=== PATIENT | male | born 1965 | race Two or more races ===

== ENCOUNTER 2025-02-08 06:29 | Outpatient (CLI) | payer OTHER ==
[2025-02-08 07:14] LABS: URINE APPEARANCE Clear; URINE BILIRRUBIN Negative (NEGATIVE); URINE BLOOD Negative; URINE COLOR Yellow; URINE GLUCOSE Negative (NEGATIVE); URINE KETONE Negative (NEGATIVE); URINE LEUKOCYTE Negative; URINE NITRATE Negative; URINE PROTEIN Negative (NEGATIVE); URINE UROBILINOGEN 0.2 E.U./dl
[2025-02-08 07:16] LABS: URINE WBC 3.4 uL (0.0-23.2)
[2025-02-08 07:20] LABS: URINE EPITHELIAL CELLS 1.2 uL (0.0-38.8)
[2025-02-08 07:32] LABS: HEMATOCRIT 39.2 % (39.0-48.0); HEMOGLOBIN 12.7 g/dL (13-16.00); MEAN CELL VOLUME 82.7 fL (80.0-100.00); MEAN CORPUSCULAR HEMOGLOBIN 26.9 pg (27.00-32.0); MEAN CORPUSCULAR HGB CONC 32.5 g/dl (32.0-36.0); PLATELET COUNT 195 K/uL (150-450); RED BLOOD COUNT 4.74 M/uL (4.00-6.00)
[2025-02-08 07:59] LABS: ALBUMIN 3.6 gm/dL (3.4-5.0); BILIRUBIN TOTAL 0.36 mg/dL (0.3-1.2); CALCIUM 8.6 mg/dL (8.5-10.1); CHOL HDL RATIO 2.8 (0-5.0); CREATININE SERUM 1.24 mg/dL (0.70-1.30); GFR 59.46; GLOBULINA 4.1 G/DL (2.4-3.5); POTASSIUM 4.39 mEq/L (3.5-5.1); PROSTATIC SPECIFIC ANTIGEN 0.795 NG/ML (0.010-4.00); TOTAL PROTEIN 7.7 gm/dL (6.4-8.2); TSH 2.19 uIU/mL (0.358-3.74)
[2025-02-08 13:31] LABS: RF NEGATIVE (NEGATIVE)
[2025-02-08 13:34] LABS: RAPID PLASMA REAGIN NONREACTIVE BY RPR (NONREACTIVE)
[2025-02-09 09:05] LABS: hav igm Negative (Negative); hcv Non Reactive (Non Reactive); hep b c Negative (Negative); hep b s ag Negative (Negative)
== END 2025-02-08 06:43 | disposition home or self-care (01) ==
LOC: LAB 06:29
PROVIDERS: ATTEND General Practice
DX: Z11.3 Encounter for screening for infections with a predominantly sexual mode of transmission (principal); Z12.11 Encounter for screening for malignant neoplasm of colon; Z13.0 Encounter for screening for diseases of the blood and blood-forming organs and certain disorders involving the immune mechanism; Z13.1 Encounter for screening for diabetes mellitus; Z13.220 Encounter for screening for lipoid disorders; Z13.29 Encounter for screening for other suspected endocrine disorder; Z12.5 Encounter for screening for malignant neoplasm of prostate; N39.0 Urinary tract infection, site not specified; M25.561 Pain in right knee

== ENCOUNTER 2025-02-08 07:28 | Outpatient (CLI) | payer OTHER | END 2025-02-08 07:40 | disposition home or self-care (01) | LOC: RAD 07:28 | PROVIDERS: ATTEND General Practice | DX: M54.50 Low back pain, unspecified (principal); M25.561 Pain in right knee ==

== ENCOUNTER 2025-02-13 06:27 | Outpatient (CLI) | payer OTHER ==
[2025-02-13 08:54] LABS: ob NEGATIVE (NEGATIVE)
== END 2025-02-13 06:40 | disposition home or self-care (01) ==
LOC: LAB 06:27
PROVIDERS: ATTEND General Practice
DX: Z11.3 Encounter for screening for infections with a predominantly sexual mode of transmission (principal); Z12.11 Encounter for screening for malignant neoplasm of colon; Z13.0 Encounter for screening for diseases of the blood and blood-forming organs and certain disorders involving the immune mechanism; Z13.220 Encounter for screening for lipoid disorders; Z13.29 Encounter for screening for other suspected endocrine disorder; Z12.5 Encounter for screening for malignant neoplasm of prostate; N39.0 Urinary tract infection, site not specified; M25.561 Pain in right knee; M54.50 Low back pain, unspecified

== ENCOUNTER 2025-02-22 07:47 | Outpatient (CLI) | payer OTHER | END 2025-02-22 07:48 | disposition home or self-care (01) | LOC: NUCLEAR 07:47 | PROVIDERS: ATTEND General Practice | DX: I73.9 Peripheral vascular disease, unspecified (principal) ==

== ENCOUNTER 2025-02-25 06:04 | Outpatient (CLI) | payer OTHER ==
[2025-02-25 08:35] LABS: INR 1.03; PARTIAL THROMBOPLASTIN TIME 27.5 SECONDS (22.0-34.0); PROTHROMBIN TIME 11.2 SECONDS (9.0-11.5)
== END 2025-02-25 06:09 | disposition home or self-care (01) ==
LOC: LAB 06:04
DX: N39.0 Urinary tract infection, site not specified (principal); Z01.812 Encounter for preprocedural laboratory examination; J01.90 Acute sinusitis, unspecified; D68.9 Coagulation defect, unspecified; E11.00 Type 2 diabetes mellitus with hyperosmolarity without nonketotic hyperglycemic-hyperosmolar coma (NKHHC); R07.9 Chest pain, unspecified; M50.90 Cervical disc disorder, unspecified, unspecified cervical region

== ENCOUNTER 2025-02-25 07:51 | Outpatient (CLI) | payer OTHER | END 2025-02-25 07:52 | disposition home or self-care (01) | LOC: NUCLEAR 07:51 | PROVIDERS: ATTEND General Practice | DX: M54.50 Low back pain, unspecified (principal); M54.51 Vertebrogenic low back pain; Z13.220 Encounter for screening for lipoid disorders; Z13.1 Encounter for screening for diabetes mellitus; Z12.11 Encounter for screening for malignant neoplasm of colon; Z11.3 Encounter for screening for infections with a predominantly sexual mode of transmission; Z12.5 Encounter for screening for malignant neoplasm of prostate ==

== ENCOUNTER 2025-05-10 09:16 | Outpatient (CLI) | payer OTHER | END 2025-05-10 09:18 | disposition home or self-care (01) | LOC: NUCLEAR 09:16 | DX: I82.411 Acute embolism and thrombosis of right femoral vein (principal) ==